=== PATIENT | female | born 1980 ===

== ENCOUNTER 2017-04-12 13:09 | Inpatient (IN) | payer MEDICAID, SELFPAY ==
[2017-04-12 14:06] VITALS: BMI 28.8
[2017-04-12] MEDS ORDERED: Lactated Ringer's 1,000 ML IV SCH ×2 (14:15)
[2017-04-12 14:46] LABS: BASO # 0.1 K/uL (0.0-0.2); BASO % 0.6 % (0.0-2.0); EOS # 0.1 K/uL (0.0-0.7); EOS % 0.9 % (0.0-4.0); HEMATOCRIT 38.7 % (34.0-47.0); LYMPH # 2.1 K/uL (1.0-4.3); LYMPH % 25.1 % (20.0-40.0); MEAN CELL VOLUME 88.3 fl (81.0-99.0); MEAN CORPUSCULAR HEMOGLOBIN 28.9 pg (27.0-31.0); MEAN CORPUSCULAR HGB CONC 32.8 g/dL (33.0-37.0); MEAN PLATELET VOLUME 10.5 fl (7.2-11.7); MONO # 0.7 K/uL (0.0-0.8); MONO % 7.8 % (0.0-10.0); NEUT # 5.5 K/uL (1.8-7.0); NEUT % 65.6 % (50.0-75.0); NRBC % 0.2 % (0.0-0.0); RED CELL DISTRIBUTION WIDTH 14.2 % (11.5-14.5); WHITE BLOOD COUNT 8.5 K/uL (4.8-10.8)
[2017-04-12] MEDS: Oxytocin 30 UNITS in Sodium Chloride 0.9% 500 ML IV ONE ×2 (18:57→22:50)
[2017-04-12] MEDS ORDERED: Fentanyl/Bupivacaine HCl 250 ML EPI ONE (20:35)
[2017-04-12] MEDS ORDERED: Lidocaine 2% Inj (20ml) ONE (22:37)
--- NOTE | 2017-04-12 22:58 | OBDS ---
MATERNAL INFORMATION Provider Comments: of live male over intact perineum, ANGEL with compound presentation, 12/28, followed by shoulders and rest of atraumatically, mouth and nose suctioned, cord clamped an d cut, cord blood obtained, placenta delivered spontaneously, fundus firm, [id number], vaginal abrasio n repaired with 3-0 vicry, pt tolerated procedure LABOR SUMMARY EDC: 04/28/2017 00:00 No. Babies in Womb: 1 LABOR INFORMATION Onset of Labor: 04/11/2017 22:00 Cervical Ripening Agents: Cytotec @ [facility] B Beta Strep: Negative MEMBRANES Membranes Rupture Method: Spontaneous Rupture of Membranes: 04/11/2017 22:00 Amniotic Fluid Color: Clear Amniotic Fluid Amount: Small Amniotic Fluid Odor: Normal
[2017-04-12] MEDS ORDERED: Oxycodone/Acetaminophen 5/325 mg Tab PO PRN ×2 (23:00)
[2017-04-12] MEDS ORDERED: Benzocaine/Menthol SPRAY TOP PRN (23:00)
--- NOTE | 2017-04-13 00:17 | OBADHP ---
Datetime: 04/12/2017 13:45 Admit Comment, IP Provider: 36 yo at 37.5 wks GA by first trimester US, not c/w LMP, EDC 04/28 presents to [facility] complaining leaking clear discharge since 10 pm last night. Pt reports heavier leakage doing down her thighs since morning. Reports decreased FM today but felt the baby move few m intues ago. Denies VB or CTX . Pt is GBS negative. Pt previous pregnancies were complicated by LGA bu t denies any shoulder dystocia. PNC: [facility], Shantal Myers. PNL: O+, ab neg, GBS neg, HIV neg , RPR neg, rubella immune, PPD neg, gc/c neg. US: on 03/20/17 shows: cephalic presentation, wt: 5 lbs 15 oz(76%) PAST OB HX: X3. 05/2008: 40 weeks, wt 9 lbs 8 oz 02/2011: 37 weeks, wt 7 lbs ( IOL due to oligo) 05/2014: 40 weeks, wt 9lbs 6 oz PAST LAST SCOURER HX: HPV in 2014 as per pt. PAP: neg PMHX: denies PAST SX HX: denies SOCIAL HX: Denies: smoking, alcohol, illicit drugs FAMILY HX: : denies family hx DMII, CAD or CA. MEDICATION: PNV ALLERGIES: NKDA Assessment: 36 yo IUP@37.5 weeks GA, presents for LOF and decreased FM. Plan: Admit to L_D Continuous heart tracing Labs Initiate IOL start cytotec 50 mcg po q4 Case d/w on-call OB hospitalist Dr. Ana Cooley, [id number] Perez: I have evaluated the patient independently and I agree with the above FHR - Baseline A Provider: 130s Amniotic Fluid Color, Provider: Clear Membranes, Provider: Ruptured Comments, ACOG Physical Exam: Speculum exam: grossly ruptured, clear fluids, +nitrazine. SVE: 06/10/-3 Pool Provider: Positive Nitrazine Provider: Positive IP Hx Assessment: The History has been Reviewed and is Current Vital Signs Provider: Reviewed IP Chief Complaint: Suspected ruptured membranes NICHD Variability Prov Fetus A: Moderate 6-25bpm NICHD Accel Fetus A IP Provider: [id number] FHR Category Provider Fetus A: Category I NICHD Decel Fetus A IP Provider: None Dilatation, Provider: 2 Effacement, Provider: 20 Station, Provider: -3 EGA AdmitDate IP: 37.5 IP Adm Impression: Term, intrauterine IP Admit Plan: Observation/Evaluation
[2017-04-13] MEDS ORDERED: Oxycodone/Acetaminophen 5/325 mg Tab PO PRN ×2 (01:43)
[2017-04-13] MEDS ORDERED: Benzocaine/Menthol SPRAY TOP PRN (01:43)
[2017-04-13 07:49] LABS: BASO % 0.5 % (0.0-2.0); EOS # 0.1 K/uL (0.0-0.7); EOS % 0.6 % (0.0-4.0); HEMATOCRIT 34.9 % (34.0-47.0); LYMPH # 1.8 K/uL (1.0-4.3); LYMPH % 19.6 % (20.0-40.0); MEAN CELL VOLUME 88.5 fl (81.0-99.0); MEAN CORPUSCULAR HEMOGLOBIN 29.2 pg (27.0-31.0); MEAN PLATELET VOLUME 10.1 fl (7.2-11.7); MONO # 0.8 K/uL (0.0-0.8); MONO % 8.6 % (0.0-10.0); NEUT # 6.6 K/uL (1.8-7.0); NEUT % 70.7 % (50.0-75.0); NRBC % 0.1 % (0.0-0.0); RED CELL DISTRIBUTION WIDTH 14.4 % (11.5-14.5); WHITE BLOOD COUNT 9.3 K/uL (4.8-10.8)
[2017-04-13] MEDS: Multivitamin With Minerals Tab PO SCH (08:57)
[2017-04-13] MEDS: Prenatal Multivit/Folic Acid/Iron Tab PO SCH (08:57)
[2017-04-13] MEDS ORDERED: Multivitamin With Minerals Tab PO SCH (09:00)
[2017-04-13] MEDS ORDERED: Prenatal Multivit/Folic Acid/Iron Tab PO SCH (09:00)
--- NOTE | 2017-04-13 23:27 | OBPPN ---
Datetime: 04/13/2017 08:03 PP Pain Prov: Within normal limits PP Nausea Prov: Denies PP Flatus Prov: Yes PP BM Prov: No PP Breasts Prov: Not Done PP Heart Prov: Normal PP Lungs Prov: Normal PP Abdomen/Uterus Prov: Normal PP Lochia Prov: Normal PP Vulva/Perineum Prov: Not Done PP CVA Tenderness Prov: Not Done PP Extremities Prov: Normal PP C/S Incision Prov: Not Applicable PP Progress Prov: Normal PP Impression Prov: Normal progression PP Plan Prov: Continue present management PP Progress Note Prov: PPD 1 S: 36 y/o female delivered via with no complications reports that she is feeling fine to day. States she had pain overnight that was controlled with pain medications. Lochia is menstrual-lik e. Tolerating regular diet well. No BM but passing gas per rectum. Urinating normally. Ambulating wit hout lightheadedness or dizziness. Mother states she is breast feeding and supplementing with bottle. No problems with latching, but feels she is not producing enough breast milk. Does not want circumcision for baby boy. O: Vitals signs wnl. Afebrile General: Well developed well nourished female seen lying in bed comfortably Cardiac: Normal S1, S2, RRR, no murmurs, no pedal edema Lungs: CTABL Abdomen: Fundus firm, NT Extremeties: No Pedal Edema Labs reviewed: H/H wnl Assessment and Plan: 36 y/o female delivered via with normal post progresion on Day 1. Encouraged danielle stfeeding for mother and senior solutions workflow consultant placed. Encouraged ambulation. Continue with current thuan reyna. Discussed with OB attending concessionist Jackie Bautista, PGY1 obh addendum: pt seen _ exmined by me. agree with above assessment and plan. IP PP Procedures: None Vital Signs Provider PP: Reviewed; Within Normal Limits
[2017-04-14] MEDS: Prenatal Multivit/Folic Acid/Iron Tab PO SCH (08:15)
[2017-04-14] MEDS: Multivitamin With Minerals Tab PO SCH (08:15)
--- NOTE | 2017-04-14 11:25 | OBDCSUM ---
Datetime: 04/14/2017 06:36 Discharged to, Provider: Home Follow up at, Provider: [facility] Disch Instr Activity: Normal activity; May be up to bathroom; May be up for meals; May Shower Disch Instr Diet: Regular Discharge Instructions, Provider: Routine instructions given Discharge Diagnosis, Provider: Term Delivered Discharge Time: 04/14/2017 12:00 Follow up in weeks, Provider: 4-6 weeks Disch Referrals: None Contraception discussed, Prov: No Disch Activity Restrictions: No lifting; No driving; Minimize walking; Minimize stair-climbing; No s exual activity; Nothing in vagina - Douglas, tampons, douche Discharge Comment, Provider: -Encouraged , ambulate with caution, no heavy lifting, not harika per vagina for 6 weeks. -Continue PNV 1 tab PO daily. -Ibuprofen 600mg PO PRN for moderate pain. -If excessive bleeding or fever despite Tylenol, go to ER. - F/U within 4-6 weeks for post- evaluation.
--- NOTE | 2017-04-14 11:25 | OBPPN ---
Datetime: 04/14/2017 06:34 PP Pain Prov: Within normal limits PP Nausea Prov: Denies PP Flatus Prov: Yes PP BM Prov: No PP Heart Prov: Normal PP Lungs Prov: Normal PP Abdomen/Uterus Prov: Normal PP Lochia Prov: Normal PP CVA Tenderness Prov: Normal PP Extremities Prov: Normal PP Progress Prov: Normal PP Impression Prov: Normal progression PP Plan Prov: Discharge PP Progress Note Prov: 36 y/o F now on PPD 2. Pt had an uncomplicated on 04/12/17. Pt reports feeling well. No caute events overnight. Pain is well managed with medications. Pt urinating and ambulating without difficulties. Pt is passing gasses but NO bowel movement yet. Pt afebrile and tolerating PO. Lochia is less than menses. Pt is without difficulties and supplementing with formula. Pt denies fever, headache, visual disturbances, CP, SOB, N/V or pruritus. O: VS WNL PE Gen: Pt resting comfortably on bed, AAOx3, not in acute distress. Lungs: CTA B/L. No W/R/R. CV: S1 S2 present, regular rhythm. Abd: BS+, soft, fundus of uterus firm and bellow umbilicus. Ext: no edema, neg Steve's sign, non-tender calves. NEURO/PSYCH: no grossly focal deficit, preserved affect and mood. A/P: 36 y/o F now on PPD 2, recovering well. -Will discharge pt home today. -Encouraged , ambulate with caution, no heavy lifting, nothing per vagina for 6 weeks . -Continue PNV 1 tab PO daily. -Ibuprofen 600mg PO PRN for moderate pain. -If excessive bleeding or fever despite Tylenol, go to ER. - F/U within 4-6 weeks for post- evaluation. Case discussed with OB correctional officer sergeant. Dominguez PGY-1. Addendum by Dr. Perez: I have evaluated the patient independently and I agree with the above. Gillian ent stable for discharge IP PP Procedures: None Vital Signs Provider PP: Reviewed
[2017-04-15 00:10] VITALS: BP 108/64; PULSE 71; RESP 19; TEMP 98; O2SAT 98
== END 2017-04-14 15:00 | disposition home or self-care (01) | DRG 775 ==
LOC: H.EROB2 13:09 → H.L&D 14:06 → H.OB/GYN 04-13 01:15
PROVIDERS: ADMIT Obstetrics & Gynecology; ATTEND Obstetrics & Gynecology
PROC: 10E0XZZ Delivery of Products of Conception, External Approach (ICD-10-PCS; principal; 2017-04-12)
PROC: 4A1HXCZ Monitoring of Products of Conception, Cardiac Rate, External Approach (ICD-10-PCS; 2017-04-12)
DX: O32.6XX0 Maternal care for compound presentation, not applicable or unspecified (principal); O36.8130 Decreased fetal movements, third trimester, not applicable or unspecified; Z3A.37 37 weeks gestation of pregnancy; Z37.0 Single live birth